=== PATIENT | female | born 1955 | race Caucasian/White ===

== ENCOUNTER → 2020-02-22 08:38 | Outpatient (BNVA) | payer BC, SELFPAY | PROVIDERS: Family Provider Nurse Practitioner; PCP Nurse Practitioner; Visit Provider Nurse Practitioner | DX: I10 Essential (primary) hypertension (principal); M19.041 Primary osteoarthritis, right hand; M19.042 Primary osteoarthritis, left hand; K21.9 Gastro-esophageal reflux disease without esophagitis; E78.2 Mixed hyperlipidemia; F41.8 Other specified anxiety disorders; M79.18 Myalgia, other site | CPT/HCPCS: 80053; 80061; 85651 ==

== ENCOUNTER 2020-07-26 12:52 | Outpatient (CLI) | payer BC, SELFPAY ==
--- NOTE | 2020-07-26 13:05 | MM_ITS ---
WS: [id number] SCREENING DIGITAL MAMMOGRAM WITH CAD HISTORY: SCREENING COMPARISON: 03/16/2019 and 03/13/2018 Bilateral CC and MLO views submitted. Computer aided detection analyzed. Breast composition: There are scattered areas of fibroglandular density. No suspicious masses, microc alcifications or architectural distortion. Benign calcification RIGHT breast. MM/[place] [id number] IMPRESSION: BI-RADS: 2-Benign FOLLOW UP: 1 Year Follow-up
== END 2020-07-26 12:53 | disposition home or self-care (01) ==
LOC: RADSHAW 12:55
PROVIDERS: PCP Nurse Practitioner; Visit Provider Nurse Practitioner
DX: Z12.31 Encounter for screening mammogram for malignant neoplasm of breast (principal)
CPT/HCPCS: 77067

== ENCOUNTER → 2020-07-29 09:44 | Outpatient (BNVA) | payer BC, SELFPAY | PROVIDERS: Family Provider Nurse Practitioner; PCP Nurse Practitioner; Visit Provider Nurse Practitioner | DX: I10 Essential (primary) hypertension (principal); M79.18 Myalgia, other site; M19.90 Unspecified osteoarthritis, unspecified site; K21.9 Gastro-esophageal reflux disease without esophagitis; E78.2 Mixed hyperlipidemia; F41.8 Other specified anxiety disorders; Z85.43 Personal history of malignant neoplasm of ovary | CPT/HCPCS: 80053; 80061; 82306; 82607; 84443; 85025; 86304 ==

== ENCOUNTER → 2021-02-03 08:31 | Outpatient (BNVA) | payer BC, SELFPAY | PROVIDERS: Family Provider Nurse Practitioner; PCP Nurse Practitioner; Visit Provider Nurse Practitioner | DX: E55.9 Vitamin D deficiency, unspecified (principal); I10 Essential (primary) hypertension | CPT/HCPCS: 80053; 80061; 82306; 82607; 84443; 85025 ==

== ENCOUNTER 2021-07-27 14:18 | Outpatient (CLI) | payer BC, SELFPAY ==
--- NOTE | 2021-07-27 14:26 | MM_ITS ---
WS: [email or web address] BILATERAL SCREENING DIGITAL MAMMOGRAM WITH CAD HISTORY: SCREENING COMPARISON: 07/26/2020 and 03/16/2019 Bilateral CC and MLO views submitted. Computer aided detection analyzed. Breast composition: There are scattered areas of fibroglandular density. No suspicious masses, microc alcifications or architectural distortion. Lymph nodes within the RIGHT axilla are slightly larger and have increased in density since the prior examination. Fatty oliva are still present but the lymph nodes have slightly changed. This may be a b enign finding. MM/[place] [id number] IMPRESSION: BI-RADS: 0-Incomplete: Need additional imaging evaluation FOLLOW UP: Need Additional Imaging Recommend ultrasound of the RIGHT axillary lymph nodes. These lymph nodes have slightly increased in density and size since 07/26/2020. Recommend evaluation by ultrasound.
== END 2021-07-27 14:19 | disposition home or self-care (01) ==
LOC: RADSHAW 14:21
PROVIDERS: PCP Nurse Practitioner; Visit Provider Nurse Practitioner
DX: Z12.31 Encounter for screening mammogram for malignant neoplasm of breast (principal)
CPT/HCPCS: 77067

== ENCOUNTER 2021-08-16 07:41 | Outpatient (CLI) | payer BC, SELFPAY ==
--- NOTE | 2021-08-16 08:45 | US_ITS ---
WS: [id number] Right breast ultrasound, 08/16/2021 Clinical Data: R92.8 - Other abnormal and inconclusive findings on diagn... Comparison: Mammogram, 07/27/2021. Findings: There are axillary lymph nodes present. These show the normal characteristics with a fatty hilum and a well defined border. No abnormal masses or cysts are seen. US/US breast RT limited* [id number] Impression: Normal right axillary lymph nodes. Return to annual screening mammograms BIRADS: 2-Benign FOLLOW UP: See Report
== END 2021-08-16 07:42 | disposition home or self-care (01) ==
LOC: RADSHAW 07:43
PROVIDERS: PCP Nurse Practitioner; Visit Provider Nurse Practitioner
DX: R92.8 Other abnormal and inconclusive findings on diagnostic imaging of breast (principal)
CPT/HCPCS: 76642

== ENCOUNTER → 2021-10-16 09:00 | Outpatient (BNVA) | payer BC, SELFPAY | PROVIDERS: PCP Nurse Practitioner; Visit Provider Nurse Practitioner | DX: I10 Essential (primary) hypertension (principal); Z85.43 Personal history of malignant neoplasm of ovary | CPT/HCPCS: 80053; 80061; 86304 ==

== ENCOUNTER → 2022-05-29 11:20 | Outpatient (BNVA) | payer BC, SELFPAY | PROVIDERS: PCP Nurse Practitioner; Visit Provider Nurse Practitioner | DX: E78.2 Mixed hyperlipidemia (principal); E55.9 Vitamin D deficiency, unspecified | CPT/HCPCS: 80053; 80061; 82306; 85025 ==

== ENCOUNTER 2022-08-17 14:26 | Outpatient (CLI) | payer BC, SELFPAY ==
--- NOTE | 2022-08-17 14:48 | MM_ITS ---
WS: [email or web address] BILATERAL 3D TOMOSYNTHESIS DIGITAL SCREENING MAMMOGRAPHY WITH CAD CLINICAL INFORMATION: SCREENING HISTORY: Screening mammogram. No current complaints. COMPARISON: July 27, 2021 TECHNIQUE: Bilateral CC and MLO views. FINDINGS: Scattered fibroglandular densities bilaterally. No suspicious focal mass, asymmetry, calcifications, or architectural distortion. No evidence of malignancy. Punctate and lucent centered calcifications. MM/[place] [id number] IMPRESSION: BI-RADS: 2-Benign FOLLOW UP: 1 Year Follow-up Recommend return to annual screening mammography.
== END 2022-08-17 14:27 | disposition home or self-care (01) ==
LOC: RAD 14:27
PROVIDERS: PCP Nurse Practitioner; Visit Provider Nurse Practitioner
DX: Z12.31 Encounter for screening mammogram for malignant neoplasm of breast (principal)
CPT/HCPCS: 77063; 77067

== ENCOUNTER → 2022-11-20 14:52 | Outpatient (BNVA) | payer BC, SELFPAY | PROVIDERS: PCP Nurse Practitioner; Visit Provider Nurse Practitioner Family | DX: R05.9 Cough, unspecified (principal) | CPT/HCPCS: 87400 ==

== ENCOUNTER → 2022-12-21 08:58 | Outpatient (BNVA) | payer BC, SELFPAY | PROVIDERS: PCP Nurse Practitioner; Visit Provider Nurse Practitioner | DX: I10 Essential (primary) hypertension (principal); E78.2 Mixed hyperlipidemia; Z85.43 Personal history of malignant neoplasm of ovary | CPT/HCPCS: 80053; 80061; 85025; 86304 ==

== ENCOUNTER → 2023-06-26 09:43 | Outpatient (BNVA) | payer MEDICARE, OTHER, SELFPAY | PROVIDERS: PCP Nurse Practitioner; Visit Provider Nurse Practitioner | DX: E55.9 Vitamin D deficiency, unspecified (principal); E78.2 Mixed hyperlipidemia; Z85.43 Personal history of malignant neoplasm of ovary | CPT/HCPCS: 80053; 80061; 82306; 84443; 85025; 86304 ==

== ENCOUNTER 2023-08-19 12:52 | Outpatient (CLI) | payer MEDICARE, OTHER, SELFPAY ==
--- NOTE | 2023-08-19 12:59 | MM_ITS ---
WS: [email or web address] BILATERAL 3D TOMOSYNTHESIS DIGITAL SCREENING MAMMOGRAPHY WITH CAD CLINICAL INFORMATION: Z12.31 - Encounter for screening mammogram for malignant ... HISTORY: Screening mammogram. No current complaints. COMPARISON: 2021 TECHNIQUE: Bilateral CC and MLO views. FINDINGS: Scattered fibroglandular densities bilaterally. No suspicious focal mass, asymmetry, calcifications, or architectural distortion. No evidence of malignancy. A few incidental punctate calcifications. IMPRESSION: MM/[place] [id number] BI-RADS: 2-Benign FOLLOW UP: 1 Year Follow-up Recommend return to annual screening mammography.
== END 2023-08-19 12:53 | disposition home or self-care (01) ==
PROVIDERS: PCP Nurse Practitioner; Visit Provider Nurse Practitioner
DX: Z12.31 Encounter for screening mammogram for malignant neoplasm of breast (principal)
CPT/HCPCS: 77063; 77067

== ENCOUNTER 2023-11-13 12:23 | Outpatient (CLI) | payer MEDICARE, OTHER, SELFPAY ==
--- NOTE | 2023-11-13 13:00 | XR_ITS ---
WS: [email or web address] SCREENING DEXA SCAN [employer] CLINICAL INFORMATION: Z78.0 - Asymptomatic menopausal state COMPARISON: None. FINDINGS: The L1-L4 bone mineral density measures 0.928 g/cm2. This corresponds to a T score score of -2.1 and Z score of -0.9. Left femoral neck bone mineral density measures 0.714 g/cm2. This corresponds to a T score of -2.3 an d Z score of -1.4. Right femoral neck bone mineral density measures 0.805 g/cm2. This corresponds to a T score -1.6of an d Z score of -0.6. Mean femoral neck bone mineral density measures 0.759 g/cm2. This corresponds to a T score of -2.0 an d Z score of -1.0. IMPRESSION: Osteopenia lumbar spine. Osteopenia femoral necks. Patient's FRAX calculated 10 year probability for major osteoporotic fracture is 22.3% and osteoporotic hip fracture is 5.3%.
== END 2023-11-13 12:24 | disposition home or self-care (01) ==
LOC: RAD 12:23
PROVIDERS: PCP Nurse Practitioner; Visit Provider Nurse Practitioner
DX: Z13.820 Encounter for screening for osteoporosis (principal); Z78.0 Asymptomatic menopausal state; M85.89 Other specified disorders of bone density and structure, multiple sites
CPT/HCPCS: 77080

== ENCOUNTER → 2024-01-15 12:05 | Outpatient (BNVA) | payer MEDICARE, OTHER, SELFPAY | PROVIDERS: PCP Nurse Practitioner; Visit Provider Nurse Practitioner | DX: I10 Essential (primary) hypertension (principal); E78.2 Mixed hyperlipidemia; E55.9 Vitamin D deficiency, unspecified; K64.4 Residual hemorrhoidal skin tags; R60.9 Edema, unspecified; F41.8 Other specified anxiety disorders; M79.18 Myalgia, other site | CPT/HCPCS: 80053; 80061; 82306; 82607; 84443 ==

== ENCOUNTER → 2024-07-01 08:26 | Outpatient (BNVA) | payer MEDICARE, OTHER, SELFPAY | PROVIDERS: PCP Nurse Practitioner; Visit Provider Nurse Practitioner | DX: I10 Essential (primary) hypertension; E78.2 Mixed hyperlipidemia; Z85.43 Personal history of malignant neoplasm of ovary | CPT/HCPCS: 80053; 80061; 85025; 86304 ==

== ENCOUNTER 2024-07-28 08:59 | Outpatient (CLI) | payer MEDICARE, OTHER, SELFPAY ==
--- NOTE | 2024-07-28 09:30 | US_ITS ---
WS: [email or web address] ULTRASOUND THYROID TECHNIQUE: Ultrasound of the thyroid. CLINICAL INFORMATION: E04.9 - Nontoxic goiter, unspecified COMPARISON: Ultrasound thyroid 2006 FINDINGS: Thyroid: Right and left thyroid lobes are normal in size and echotexture. Right thyroid lobe: 4.0 cm x 1.1 cm x 1.6 cm Left thyroid lobe: 4.0 cm x 1.4 cm x 2.1 cm. Heterogeneous LEFT thyroid nodule measuring 1.8 x 1.1 x 1.4 cm Isthmus: 0.3 mm. Cervical lymphadenopathy: None. US/US thyroid [id number] IMPRESSION: Heterogeneous LEFT thyroid nodule measuring 1.8 x 1.1 x 1.4 cm appears new sinc e 2006. Recommend further evaluation with FNA. TIRADS Category 5: Highly suspicious (total points = 10) FNA if e1 cm Follow if e0.5 cm (every year up to 5 years)
--- NOTE | 2024-07-28 10:00 | US_ITS ---
WS: [email or web address] EXAM: US renal BI* [id number] REASON FOR EXAM: N18.2 - Chronic kidney disease, stage 2 (mild) DATE: 07/28/2024 COMPARISON: None. FINDINGS: Right kidney measures 9.8 cm in length, 4.0 cm in depth and 4.4 cm in width. Cortical thickness at 1 .0 cm. Left kidney measures 10.1 cm in length, 4.0 cm in depth and 3.9 cm in width. Cortical thickness at 1. 0 cm. There is no evidence of hydronephrosis. Echogenicity is within normal limits. No dominant shadowing stone or mass is appreciated. US/US renal BI* [id number] IMPRESSION: The kidneys are normal in size. The cortices are maintained. There is no hydron ephrosis.
== END 2024-07-28 09:00 | disposition home or self-care (01) ==
LOC: RAD 09:00
PROVIDERS: PCP Nurse Practitioner; Visit Provider Nurse Practitioner
DX: E04.9 Nontoxic goiter, unspecified (principal); N18.2 Chronic kidney disease, stage 2 (mild)
CPT/HCPCS: 76536; 76770

== ENCOUNTER → 2024-08-04 09:44 | Outpatient (BNVA) | payer MEDICARE, OTHER, SELFPAY | PROVIDERS: PCP Nurse Practitioner; Visit Provider Nurse Practitioner | DX: E04.1 Nontoxic single thyroid nodule (principal) | CPT/HCPCS: 84443 ==

== ENCOUNTER 2024-08-26 13:02 | Outpatient (CLI) | payer MEDICARE, OTHER, SELFPAY ==
--- NOTE | 2024-08-26 11:45 | US_ITS ---
WS: [email or web address] ULTRASOUND THYROID FNA CLINICAL INFORMATION: E04.1 - Nontoxic single thyroid nodule TECHNIQUE: Ultrasound-guided FNA FINDINGS: The procedure including risks, benefits, and complications were discussed with the patient who agreed to proceed. Timeout was performed. Using sterile technique patient was prepped and draped in usual sterile fashion. After 1% lidocaine, using ultrasound guidance, a 25-gauge needle was advanc ed into the LEFT thyroid nodule. 5 passes were made with active aspiration. Pathology was present for slide preparation. No immediate complications. Patient remained in the ultrasound suite 10 minutes postprocedure with intermittent ultrasound to ens ure no hematoma. No hematoma 10 minutes postprocedure. US/US biopsy/FNA thyroid [id number] IMPRESSION: Uncomplicated ultrasound-guided thyroid FNA Cytology is pending.
== END 2024-08-26 13:03 | disposition home or self-care (01) ==
LOC: RAD 13:02
PROVIDERS: PCP Nurse Practitioner; Visit Provider Nurse Practitioner
DX: E04.1 Nontoxic single thyroid nodule (principal)
CPT/HCPCS: 10005; 88173; 88305

== ENCOUNTER 2024-09-08 08:53 | Outpatient (CLI) | payer MEDICARE, OTHER, SELFPAY ==
--- NOTE | 2024-09-08 09:00 | MM_ITS ---
WS: [email or web address] Bilateral screening 3D tomosynthesis digital mammogram, 09/08/2024 9:24 AM Clinical Data: Z12.31 - Encounter for screening mammogram for malignant ... Comparison: 08/19/2023, 08/17/2022, 07/27/2021, 07/26/2020, 03/16/2019, 03/13/2018, 03/06/2017, 03/05/2016, 03/02, 02/23/2014, 01/09/2013, 12/12/2011, 11/28/2010, 11/14/2009, 11/12/2008, 10/23/2007, 10/10/2006. Findings: No spiculated masses or clustered calcifications are seen. There are no secondary signs of carcinoma . MM/MM scr BI tomosynthesis [id number] Impression: Negative bilateral mammogram unchanged. Recommend annual screening mammograms. BIRADS: 1 - Negative. FOLLOW UP: 1 Year Follow-up DENSITY: The breasts are almost entirely fatty. The CAD relay checker was used
== END 2024-09-08 08:54 | disposition home or self-care (01) ==
LOC: MOBLMAM 08:55
PROVIDERS: PCP Nurse Practitioner; Visit Provider Nurse Practitioner
DX: Z12.31 Encounter for screening mammogram for malignant neoplasm of breast (principal)
CPT/HCPCS: 77063; 77067

== ENCOUNTER → 2024-12-16 09:39 | Outpatient (BNVA) | payer MEDICARE, OTHER, SELFPAY | PROVIDERS: PCP Nurse Practitioner; Visit Provider Nurse Practitioner | DX: I10 Essential (primary) hypertension (principal); E78.2 Mixed hyperlipidemia; F41.8 Other specified anxiety disorders; E55.9 Vitamin D deficiency, unspecified | CPT/HCPCS: 80053; 80061; 82306; 84443; 85025 ==

== ENCOUNTER → 2025-03-17 08:16 | Outpatient (BNVA) | payer MEDICARE, OTHER, SELFPAY | PROVIDERS: PCP Nurse Practitioner; Visit Provider Nurse Practitioner | DX: E04.1 Nontoxic single thyroid nodule (principal) | CPT/HCPCS: 84443 ==

== ENCOUNTER → 2025-05-12 08:58 | Outpatient (BNVA) | payer MEDICARE, OTHER, SELFPAY | PROVIDERS: PCP Nurse Practitioner; Visit Provider Nurse Practitioner | DX: I10 Essential (primary) hypertension (principal); E55.9 Vitamin D deficiency, unspecified; E04.1 Nontoxic single thyroid nodule; Z85.43 Personal history of malignant neoplasm of ovary | CPT/HCPCS: 80053; 80061; 82306; 84443; 85025; 86304 ==

== ENCOUNTER 2025-10-05 13:32 | Outpatient (CLI) | payer MEDICARE, OTHER, SELFPAY ==
--- NOTE | 2025-10-05 13:40 | MM_ITS ---
WS: [email or web address] BILATERAL 3D TOMOSYNTHESIS DIGITAL SCREENING MAMMOGRAPHY WITH CAD CLINICAL INFORMATION: SCREENING HISTORY: Screening mammogram. No current complaints. COMPARISON: 2023 TECHNIQUE: Bilateral CC and MLO views. FINDINGS: Scattered fibroglandular densities bilaterally. No suspicious focal mass, asymmetry, calcifications, or architectural distortion. No evidence of malignancy. Lucent centered calcification RIGHT breast. Stable area of architectural distortion central RIGHT breast with long-term stability MM/MM [facility] tomosynthesis [id number] IMPRESSION: DENSITY: There are scattered areas of fibroglandular density. BI-RADS: 2 - Benign. FOLLOW UP: 1 Year Follow-up Recommend return to annual screening mammography.
== END 2025-10-05 13:33 | disposition home or self-care (01) ==
LOC: MOBLMAM 13:42
PROVIDERS: PCP Nurse Practitioner; Visit Provider Nurse Practitioner
DX: Z12.31 Encounter for screening mammogram for malignant neoplasm of breast (principal); R92.323 Mammographic fibroglandular density, bilateral breasts; R92.1 Mammographic calcification found on diagnostic imaging of breast; N64.89 Other specified disorders of breast
CPT/HCPCS: 77063; 77067

== ENCOUNTER → 2025-11-03 08:23 | Outpatient (BNVA) | payer MEDICARE, OTHER, SELFPAY | PROVIDERS: PCP Nurse Practitioner; Visit Provider Nurse Practitioner | DX: I10 Essential (primary) hypertension (principal); E78.2 Mixed hyperlipidemia; E55.9 Vitamin D deficiency, unspecified; N18.2 Chronic kidney disease, stage 2 (mild) | CPT/HCPCS: 80053; 80061; 82306; 84443 ==

== ENCOUNTER 2025-11-16 13:55 | Outpatient (CLI) | payer MEDICARE, OTHER, SELFPAY ==
--- NOTE | 2025-11-16 15:00 | XR_ITS ---
WS: [email or web address] DEXA (DUAL ENERGY X-RAY ABSORPTIOMETRY) Bone mineral density was performed using a [employer] machine. HISTORY: Z78.0 - Asymptomatic menopausal state COMPARISON: 11/13/2023 Lumbar spine BMD (L1-L4): 0.905 g/cm2 T score: -2.3 Z score: -0.9 Total hip BMD: Left: 0.668 g/cm2. T score: -2.7 Z score: -1.5 Right: 0.741 g/cm2. T score: -2.1 Z score: -0.9 10 year probability of a major osteoporotic fracture is 16.6%. Compared to the prior study from 11/13/2023. Lumbar spine bone mineral density has decreased by 2.5%. Bilateral hips bone mineral density has decreased by 7.2%. XR/XR DEXA axial skeleton* [id number] IMPRESSION: OSTEOPOROSIS based upon the WHO classification for females. Significant decrease in bone mineral density in the lumbar spine and hips since the prior study.
== END 2025-11-16 13:56 | disposition home or self-care (01) ==
LOC: RAD 13:56
PROVIDERS: PCP Nurse Practitioner; Visit Provider Nurse Practitioner
DX: Z13.820 Encounter for screening for osteoporosis (principal); Z78.0 Asymptomatic menopausal state; M81.0 Age-related osteoporosis without current pathological fracture
CPT/HCPCS: 77080